=== PATIENT | female | born 1935 | race Caucasian/White ===

== ENCOUNTER 2018-06-11 14:30 | Outpatient (CLI) | payer MEDICARE, MEDICAID | END 2018-06-11 23:59 | disposition home health service (06) | LOC: WOU 14:30 | PROVIDERS: ATTEND Podiatrist Foot & Ankle Surgery | DX: S81.811A Laceration without foreign body, right lower leg, initial encounter (principal); W18.30XA Fall on same level, unspecified, initial encounter; I87.2 Venous insufficiency (chronic) (peripheral); E11.59 Type 2 diabetes mellitus with other circulatory complications; I10 Essential (primary) hypertension; I25.10 Atherosclerotic heart disease of native coronary artery without angina pectoris; Z79.84 Long term (current) use of oral hypoglycemic drugs; Z86.73 Personal history of transient ischemic attack (TIA), and cerebral infarction without residual deficits; Z88.6 Allergy status to analgesic agent; Y93.9 Activity, unspecified; Z88.0 Allergy status to penicillin; M19.90 Unspecified osteoarthritis, unspecified site; Y92.89 Other specified places as the place of occurrence of the external cause; Y99.9 Unspecified external cause status; Z88.8 Allergy status to other drugs, medicaments and biological substances | CPT/HCPCS: 11042; A6402; Z7610 ==

== ENCOUNTER 2018-06-18 08:15 | Outpatient (CLI) | payer MEDICAID, MEDICARE | END 2018-06-18 23:59 | disposition home health service (06) | LOC: WOU 08:15 | PROVIDERS: ATTEND Podiatrist Foot & Ankle Surgery | DX: S81.811A Laceration without foreign body, right lower leg, initial encounter (principal); W18.30XA Fall on same level, unspecified, initial encounter; I87.2 Venous insufficiency (chronic) (peripheral); E11.59 Type 2 diabetes mellitus with other circulatory complications; Z79.84 Long term (current) use of oral hypoglycemic drugs; I10 Essential (primary) hypertension; Y93.9 Activity, unspecified; Y92.89 Other specified places as the place of occurrence of the external cause; Y99.9 Unspecified external cause status; Z79.01 Long term (current) use of anticoagulants; Z88.6 Allergy status to analgesic agent; Z88.0 Allergy status to penicillin; Z86.73 Personal history of transient ischemic attack (TIA), and cerebral infarction without residual deficits; M81.0 Age-related osteoporosis without current pathological fracture; I25.10 Atherosclerotic heart disease of native coronary artery without angina pectoris; Z95.810 Presence of automatic (implantable) cardiac defibrillator; Z95.0 Presence of cardiac pacemaker; Z96.651 Presence of right artificial knee joint | CPT/HCPCS: 11042; A6253; A6402; Z7610 ==

== ENCOUNTER 2018-06-25 08:40 | Outpatient (CLI) | payer MEDICARE | END 2018-06-25 23:59 | disposition home health service (06) | LOC: WOU 08:40 | PROVIDERS: ATTEND Podiatrist Foot & Ankle Surgery | DX: Z09 Encounter for follow-up examination after completed treatment for conditions other than malignant neoplasm (principal); I87.2 Venous insufficiency (chronic) (peripheral); E11.59 Type 2 diabetes mellitus with other circulatory complications; Z79.01 Long term (current) use of anticoagulants; Z79.84 Long term (current) use of oral hypoglycemic drugs; Z88.6 Allergy status to analgesic agent; Z88.0 Allergy status to penicillin | CPT/HCPCS: A6402; G0463; Z7610 ==

== ENCOUNTER 2018-07-09 09:14 | Outpatient (CLI) | payer MEDICARE | END 2018-07-09 23:59 | disposition home or self-care (01) | LOC: WOU 09:14 | PROVIDERS: ATTEND Podiatrist Foot & Ankle Surgery | DX: I87.2 Venous insufficiency (chronic) (peripheral) (principal); E11.59 Type 2 diabetes mellitus with other circulatory complications; I10 Essential (primary) hypertension; Z79.01 Long term (current) use of anticoagulants; Z79.84 Long term (current) use of oral hypoglycemic drugs; Z86.73 Personal history of transient ischemic attack (TIA), and cerebral infarction without residual deficits; Z88.6 Allergy status to analgesic agent; Z88.0 Allergy status to penicillin; Z95.0 Presence of cardiac pacemaker | CPT/HCPCS: G0463; Z7610 ==

== ENCOUNTER 2018-08-27 09:40 | Outpatient (CLI) | payer MEDICAID, MEDICARE | END 2018-08-27 23:59 | disposition home health service (06) | LOC: WOU 09:40 | PROVIDERS: ATTEND Podiatrist Foot & Ankle Surgery | DX: I87.2 Venous insufficiency (chronic) (peripheral) (principal); E11.59 Type 2 diabetes mellitus with other circulatory complications; L60.3 Nail dystrophy; I10 Essential (primary) hypertension; I25.10 Atherosclerotic heart disease of native coronary artery without angina pectoris; M81.0 Age-related osteoporosis without current pathological fracture; Z96.651 Presence of right artificial knee joint; Z95.810 Presence of automatic (implantable) cardiac defibrillator; Z79.84 Long term (current) use of oral hypoglycemic drugs; Z79.01 Long term (current) use of anticoagulants | CPT/HCPCS: G0463; Z7610 ==

== ENCOUNTER 2018-12-03 11:25 | Outpatient (CLI) | payer MEDICARE, MEDICAID | END 2018-12-03 23:59 | disposition home health service (06) | LOC: WOU 11:25 | PROVIDERS: ATTEND Podiatrist Foot & Ankle Surgery | DX: I87.2 Venous insufficiency (chronic) (peripheral) (principal); E11.59 Type 2 diabetes mellitus with other circulatory complications; L60.3 Nail dystrophy; M79.661 Pain in right lower leg; Z79.01 Long term (current) use of anticoagulants; Z79.84 Long term (current) use of oral hypoglycemic drugs; M19.90 Unspecified osteoarthritis, unspecified site; I10 Essential (primary) hypertension; I25.10 Atherosclerotic heart disease of native coronary artery without angina pectoris; Z96.651 Presence of right artificial knee joint; Z95.810 Presence of automatic (implantable) cardiac defibrillator | CPT/HCPCS: G0463; Z7610 ==

== ENCOUNTER 2018-12-04 15:09 | Emergency (ER) | payer MEDICARE, MEDICAID ==
[~2018-12-04] VITALS: Ht 162.6 cm; Wt 66.2 kg
--- NOTE | 2018-12-04 15:10 | NUR ---
BIB DAUGHTER C/O FLU-LIKE SYMPTOMS: COUGH FEVER AND CONGESTION X 4 DAYS. TO ER BED 1, HOOKED TO MONITOR, [facility], AWAITING MD MCKEON
--- NOTE | 2018-12-04 15:18 | NUR ---
DR WILLIS AT BEDSIDE
[2018-12-04] MEDS ORDERED: IV NS 0.9% 1,000 ML BAG IV ONE (15:30)
[2018-12-04 15:38] LABS: BASOPHILS # (AUTO) 0.1 /CMM (0.0-0.2); BASOPHILS % (AUTO) 0.6 % (0.0-2.0); EOSINOPHILS % (AUTO) 2.6 % (0.0-6.0); HEMATOCRIT 37 % (33-45); HEMOGLOBIN 12.2 g/dL (11.5-14.8); LYMPHOCYTES # (AUTO) 2.5 /CMM (0.8-4.8); LYMPHOCYTES % (AUTO) 23.4 % (20.0-44.0); MEAN CORPUSCULAR HGB CONC 33 g/dl (31.0-36.0); MEAN CORPUSCULAR VOLUME 86 fL (82-100); MONOCYTES # (AUTO) 0.7 /CMM (0.1-1.30); MONOCYTES % (AUTO) 6.1 % (2.0-12.0); NEUTROPHILS # (AUTO) 7.3 /CMM (1.8-8.9); NEUTROPHILS % (AUTO) 67.3 % (43.0-81.0); PLATELET COUNT (AUTO) 343 /CMM (150-450); RED BLOOD CELL COUNT(AUTO) 4.35 MIL/uL (4.0-5.2); WHITE BLOOD COUNT (AUTO) 10.8 K/uL (4.3-11.0)
[2018-12-04 15:46] LABS: CALCIUM, SERUM 9.4 mg/dL (8.5-10.1); CARBON DIOXIDE 29 mmol/L (21-32); CHLORIDE 104 mmol/L (98-107); CREATININE 0.9 mg/dL (0.6-1.3); GLUCOSE 102 mg/dL (74-106); POTASSIUM 3.7 mmol/L (3.5-5.1); SODIUM SERUM 137 mmol/L (136-145); UREA NITROGEN, BLOOD 18 mg/dL (7-18)
[2018-12-04 15:53] LABS: ALANINE AMINOTRANSFERASE 20 U/L (12-78); ALBUMIN 3.3 g/dL (3.4-5.0); ALKALINE PHOSPHATASE 78 U/L (46-116); ASPARTATE AMINOTRANSFERASE 13 U/L (15-37); BILIRUBIN,DIRECT 0.1 mg/dL (0.0-0.2); BILIRUBIN,TOTAL 0.4 mg/dL (0.2-1.0); TOTAL PROTEIN, SERUM 7.1 g/dL (6.4-8.2)
--- NOTE | 2018-12-04 16:28 | NUR ---
URINE SAMPLE SENT TO LAB
[2018-12-04 16:36] LABS: APPEARANCE,URINE Slightly Cloudy (CLEAR); BILIRUBIN,URINE Negative (NEGATIVE); BLOOD, URINE Small Ery/uL (NEGATIVE); COLOR,URINE Yellow (YELLOW); KETONES,URINE Negative (NEGATIVE); LEUKOCYTE ESTERASE ,URINE Moderate (NEGATIVE); NITRITE, URINE Positive (NEGATIVE); PROTEIN,URINE Negative (NEGATIVE); UGLUCOSE Negative (NEGATIVE); UROBILINOGEN,URINE 0.2 EU/dL (0.2)
[2018-12-04 16:54] LABS: BACTERIA,URINE Many /HPF (None Seen); SQUAMOUS EPITHELIAL CELL,UR Few /HPF (None Seen)
--- NOTE | 2018-12-04 17:53 | NUR ---
IV removed. Catheter intact and site benign. Pressure and 4x4 applied to site. No bleeding noted.Patient discharged to home in stable condition. Written and verbal after care instructions given. Patient verbalizes understanding of instruction.
[2018-12-04 17:54] VITALS: BP 150/86
== END 2018-12-04 17:55 | disposition home or self-care (01) ==
LOC: ER 15:09 → EDUNIT# 15:09 → ER 17:55
DX: J40 Bronchitis, not specified as acute or chronic (principal); N39.0 Urinary tract infection, site not specified; I10 Essential (primary) hypertension; E11.9 Type 2 diabetes mellitus without complications; Z95.0 Presence of cardiac pacemaker; Z88.0 Allergy status to penicillin; Z88.5 Allergy status to narcotic agent; Z88.6 Allergy status to analgesic agent
CPT/HCPCS: 36415; 71045; 73590; 80048; 80076; 81001; 83605; 84484; 85025; 85730; 87040 ×2; 87086; 93005; 99284; A4606; J7030; 81000-TC; 87186-TC